=== PATIENT | female | born 2005 | race Caucasian/White ===

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

== ENCOUNTER 2024-09-30 21:35 | Emergency (ER) | payer OTHER ==
[~2024-09-30] VITALS: Ht 154.9 cm; Wt 61.2 kg
[~2024-09-30 21:35] MED LIST changes: +HYDHCL25 PO; +LORA10ER PO; +ZOLOFT25 MG PO
[2024-09-30 22:39] VITALS: BP 131/82
[2024-09-30] MEDS ORDERED: Amoxicillin 500 MG Cap PO ONE (23:45)
[2024-09-30] MEDS ORDERED: AMOX500 PO (23:49)
== END 2024-09-30 23:56 | disposition home or self-care (01) ==
LOC: ER 21:35
DX: J02.0 Streptococcal pharyngitis (principal); Z91.018 Allergy to other foods; Z79.899 Other long term (current) drug therapy; Z88.9 Allergy status to unspecified drugs, medicaments and biological substances; Z79.2 Long term (current) use of antibiotics
CPT/HCPCS: 87430; 99283; A9270

== ENCOUNTER → 2025-01-23 | Outpatient (CLI) | payer OTHER ==
[~2025-01-23] MED LIST changes: +AMOX500 PO
[2025-01-25 08:40] LABS: APTIMA MEDIA TYPE Urine; C. TRACHOMATIS BY TMA Negative (Negative); N. GONORRHOEAE BY TMA Negative (Negative)
== END ==
LOC: LAB SHORT 10:11 → LAB 10:11
PROVIDERS: Family Medicine
DX: Z11.3 Encounter for screening for infections with a predominantly sexual mode of transmission (principal)
CPT/HCPCS: 87491; 87591

== ENCOUNTER → 2025-05-17 | Outpatient (CLI) | payer OTHER | LOC: LAB 13:07 → LAB SHORT 13:07 | DX: O09.93 Supervision of high risk pregnancy, unspecified, third trimester (principal) | CPT/HCPCS: 87081; 87150 ==

== ENCOUNTER → 2025-07-23 | Outpatient (CLI) | payer OTHER ==
[~2025-07-23] MED LIST changes: +ACET500 PO; +DOCU100 PO; +IBUP800 PO; +OXAYDO5 M1 PO; +PRENATAL 19 TA1 EAC3 PO; +SIME80CH PO; +[UNRECOGNIZED DRUG - OTHER] TOP
== END ==
LOC: LAB 18:25 → LAB SHORT 18:25
PROVIDERS: Obstetrics & Gynecology
DX: Z01.419 Encounter for gynecological examination (general) (routine) without abnormal findings (principal)
CPT/HCPCS: G0145